=== PATIENT | male | born 1955 | race Two or more races ===

== ENCOUNTER 2019-03-19 02:42 | Emergency (ER) | payer OTHER ==
[~2019-03-19] VITALS: Ht 170.2 cm; Wt 93.6 kg
--- NOTE | 2019-03-19 03:13 | PHYS DOC ---
Adult General Chief Complaint Chief Complaint: ABDOMINAL PAIN HPI HPI 63-year-old male with no past medical history aside from gout presents to the emergency Department complaints of abdominal pain, diarrhea, vomiting, dizziness since Saturday. Patient denies any fever. Nothing makes pain worse, nothing makes his pain better. Patient is tried [id number]-[id number] medications however states the pain is worse tonight. He describes the pain as achy sensation throughout his abdomen, generalized no focal point tenderness. Review of Systems Review of Systems Constitutional: chills Respiratory: Denies cough or shortness of breath [] Cardiovascular: No additional information not addressed in HPI [] GI: + abdominal pain, nausea, vomiting, diarrhea [] Musculoskeletal: Denies back pain or joint pain [] Integument: Denies rash or skin lesions [] Neurologic: + headache, no focal weakness or sensory changes [] All other systems were reviewed and found to be within normal limits, except as documented in this note. Current Medications Current Medications Current Medications Medications (Trade) Dose Ordered Sig/Aaron Start Time Stop Time Status Last Admin Dose Admin Dicyclomine HCl (Bentyl) 10 mg 1X ONCE 03/19/19 03:30 03/19/19 03:31 DC 03/19/19 04:20 10 MG Info (CONTRAST GIVEN -- Rx MONITORING) 1 each PRN DAILY PRN 03/19/19 04:30 03/21/19 04:29 Iohexol (Omnipaque 300 Mg/ml) 75 ml 1X ONCE 03/19/19 05:00 03/19/19 05:01 DC 03/19/19 04:42 75 ML Ondansetron HCl (Zofran) 4 mg 1X ONCE 03/19/19 03:30 03/19/19 03:31 DC 03/19/19 04:19 4 MG Sodium Chloride 1,000 ml @ 1,000 mls/hr 1X ONCE 03/19/19 05:15 03/19/19 06:14 UNV Allergies Allergies Allergies Coded Allergies Type Severity Reaction Last Updated Verified No Known Drug Allergies 03/19/19 No Physical Exam Physical Exam Constitutional: Well developed, well nourished, no acute distress, non-toxic appearance. [] HENT: Normocephalic, atraumatic, bilateral external ears normal, oropharynx moist, no oral exudates, nose normal. [] Eyes: PERRLA, EOMI, conjunctiva normal, no discharge. [] Cardiovascular: Tachycardia Lungs & Thorax: Bilateral breath sounds clear to auscultation [] Abdomen: Bowel sounds normal, soft, TTP generalized, no point tenderness, no masses, no pulsatile masses. [] Skin: Warm, dry, no erythema, no rash. [] Back: No tenderness, no CVA tenderness. [] Extremities: No tenderness, no edema. [] Neurologic: Alert and oriented X 3, no focal deficits noted. [] Psychologic: Affect normal, judgement normal, mood normal. [] Current Patient Data Vital Signs Vital Signs Date Time Temp Pulse Resp B/P (MAP) Pulse Ox O2 Delivery O2 Flow Rate FiO2 03/19/19 02:56 99.0 111 16 150/95 (113) 93 Room Air 99.0 Lab Values Laboratory Tests Test 03/19/19 03:25 03/19/19 04:21 White Blood Count 9.4 x10^3/uL (4.0-11.0) Red Blood Count 5.63 x10^6/uL (4.30-5.70) Hemoglobin 18.3 g/dL (13.0-17.5) H Hematocrit 53.7 % (39.0-53.0) H Mean Corpuscular Volume 95 fL (79-100) Mean Corpuscular Hemoglobin 33 pg (25-35) Mean Corpuscular Hemoglobin Concent 34 g/dL (31-37) Red Cell Distribution Width 13.7 % (11.5-14.5) Platelet Count 203 x10^3/uL (140-400) Neutrophils (%) (Auto) 77 % (31-73) H Lymphocytes (%) (Auto) 12 % (24-48) L Monocytes (%) (Auto) 10 % (0-9) H Eosinophils (%) (Auto) 1 % (0-3) Basophils (%) (Auto) 0 % (0-3) Neutrophils # (Auto) 7.3 x10^3/uL (1.8-7.7) Lymphocytes # (Auto) 1.1 x10^3/uL (1.0-4.8) Monocytes # (Auto) 0.9 x10^3/uL (0.0-1.1) Eosinophils # (Auto) 0.1 x10^3/uL (0.0-0.7) Basophils # (Auto) 0.0 x10^3/uL (0.0-0.2) Sodium Level 140 mmol/L (136-145) Potassium Level 4.4 mmol/L (3.5-5.1) Chloride Level 102 mmol/L (98-107) Carbon Dioxide Level 21 mmol/L (21-32) Anion Gap 17 (6-14) H Blood Urea Nitrogen 18 mg/dL (8-26) Creatinine 0.8 mg/dL (0.7-1.3) Estimated GFR (Cockcroft-Gault) 97.0 BUN/Creatinine Ratio 23 (6-20) H Glucose Level 118 mg/dL (70-99) H Lactic Acid Level 1.9 mmol/L (0.4-2.0) Calcium Level 9.4 mg/dL (8.5-10.1) Total Bilirubin 0.5 mg/dL (0.2-1.0) Aspartate Amino Transferase (AST) 33 U/L (15-37) Alanine Aminotransferase (ALT) 55 U/L (16-63) Alkaline Phosphatase 151 U/L (46-116) H Troponin I Quantitative < 0.017 ng/mL (0.000-0.055) Total Protein 7.7 g/dL (6.4-8.2) Albumin 3.9 g/dL (3.4-5.0) Albumin/Globulin Ratio 1.0 (1.0-1.7) Lipase 193 U/L (73-393) Urine Collection Type Unknown Urine Color Yellow Urine Clarity Clear Urine pH 5.5 Urine Specific [place] >=1.030 Urine Protein 30 mg/dL (NEG-TRACE) Urine Glucose (UA) Negative mg/dL (NEG) Urine Ketones (Stick) Negative mg/dL (NEG) Urine Blood Small (NEG) Urine Nitrite Negative (NEG) Urine Bilirubin Negative (NEG) Urine Urobilinogen Dipstick 0.2 mg/dL (0.2 mg/dL) Urine Leukocyte Esterase Negative (NEG) Urine RBC 6-10 /HPF (0-2) Urine WBC 1-4 /HPF (0-4) Urine Squamous Epithelial Cells Few /LPF Urine Bacteria 0 /HPF (0-FEW) Urine Hyaline Casts Few /HPF Urine Mucus Marked /LPF Laboratory Tests 03/19/19 03:25 Laboratory Tests 03/19/19 03:25 EKG EKG [] Radiology/Procedures Radiology/Procedures [facility] [address] [place] [address] IMAGING REPORT Signed PATIENT: ARAMIS SOUZA ACCOUNT: [id number] : 1955 LOCATION: ER AGE: 63 SEX: M EXAM STATUS: REG ER ORD. PHYSICIAN: LEELEE YANES MD REASON: abdominal pain, OMNI 300, 75 ML IV PROCEDURE: CT ABD PELV W/ IV CONTRST ONLY EXAM: CT Abdomen and Pelvis with IV contrast CLINICAL HISTORY: Abdominal pain. COMPARISON: none TECHNIQUE: Helical CT of the abdomen and pelvis was performed following the administration of IV contrast. Axial, coronal and sagittal reformatted images were generated. ---PQRS compliance statement - One or more of the following individualized dose reduction techniques were utilized for this study: 1. Automated exposure control 2. Adjustment of the mA and/or kV according to patient size 3. Use of iterative reconstruction technique--- FINDINGS: Lower chest: Linear and dependent opacities in the lung bases likely atelectasis. Aortic root calcifications are seen. Abdomen and pelvis: Liver and biliary system: 1.1 cm left hepatic lobe cystic lesion is seen. Gallbladder is normal. No biliary ductal dilatation. Spleen: Unremarkable Pancreas: Unremarkable Adrenal glands: Unremarkable Kidneys: Symmetric nephrograms. No focal renal lesion. No hydronephrosis. No hydroureter. Lymph nodes/retroperitoneum: No abdominal or pelvic lymphadenopathy. A few mildly prominent mesenteric lymph nodes are seen. Vessels: Aortic calcifications are seen. Bowel/Peritoneal cavity: Moderate colonic stool content is seen. No small or large bowel dilatation. Colonic diverticula are noted. No evidence for acute diverticulitis. Appendix is normal. No abdominal or pelvic ascites. Abdominal wall: Unremarkable Bladder: Mild bladder wall thickening, nonspecific but may be related to underdistention or cystitis. Bones: Degenerative changes of the spine are seen. Bilateral L5 pars defects are seen. No spondylolisthesis. IMPRESSION: 1. No bowel obstruction. A few colonic diverticula are seen without evidence for acute diverticulitis. 2. Mild bladder wall thickening, nonspecific but may be related to underdistention or cystitis. Electronically signed by: Cholo Lopez MD (03/19/2019 4:54 AM) [id number] DICTATED and SIGNED BY: CHOLO LOPEZ MD DATE: 03/19/19 0454 [] Course & Med Decision Making Course & Med Decision Making Pertinent Labs and Imaging studies reviewed. (See chart for details) []63-year-old male with no past medical history aside from gout presents to the emergency Department complaints of abdominal pain, diarrhea, vomiting, dizziness since Saturday. Patient denies any fever. Nothing makes pain worse, nothing makes his pain better. Patient is tried [id number] medications however states the pain is worse tonight. He describes the pain as achy sensation throughout his abdomen, generalized no focal point tenderness. Laboratory values and imaging reviewed CT without evidence of acute intra-abdominal process to attribute patient's pain Patient pain is improved after Bentyl and Zofran Labs reviewed, lactic acid 1.9, urinalysis negative, white blood cell count 9.4, metabolic profile unremarkable Patient's unremarkable workup, improved pain we'll plan for Zofran and Bentyl upon discharge Received 2 L of IV fluid within the emergency department. Discussed return precautions at bedside Dragon Disclaimer Dragon Disclaimer This electronic medical record was generated, in whole or in part, using a voice recognition dictation system. Departure Departure Impression: Primary Impression: Abdominal pain Additional Impression: Gastroenteritis Disposition: HOME, SELF-CARE Condition: IMPROVED Referrals: ALEXANDRA BARNEY MD (PCP) Patient Instructions: Abdominal Pain (Nonspecific), Viral Gastroenteritis, [id number] Additional Instructions: Recommend follow up with PCP 3 - 5 days Return to the ER with worsening symptoms, intractable pain, fever, altered mental status Tylenol/Motrin as needed for pain CT negative for acute intra-abdominal process Urine negative for acute infection Rx provided for bentyl and zofran Scripts Ondansetron Hcl (ZOFRAN) 4 Mg Tablet 1 TAB PO PRN Q6-8HRS for nausea, #12 TAB Prov: LEELEE YANES MD 03/19/19 Dicyclomine Hcl (DICYCLOMINE HCL) 10 Mg Capsule 1 CAP PO PRN Q6HRS PRN for PAIN for 5 Days, #20 CAP 3 Refills Prov: LEELEE YANES MD 03/19/19 Problem Qualifiers Primary Impression: Abdominal pain Abdominal location: generalized Qualified Codes: R10.84 - Generalized abdominal pain LEELEE YANES MD Mar 19, 2019 03:13
[2019-03-19] MEDS ORDERED: DICYCLOMINE 20 MG/2 ML AMPUL. IM ONE (03:30)
[2019-03-19] MEDS ORDERED: IV NORMAL SALINE 1000ML BAG 1,000 ML IV SCH (03:30)
[2019-03-19] MEDS ORDERED: ONDANSETRON PF 4 MG/2 ML VIAL. IVP ONE (03:30)
[2019-03-19 03:31] LABS: BASO % 0 % (0-3); EOS # 0.1 x10^3/uL (0.0-0.7); EOS % 1 % (0-3); HEMATOCRIT 53.7 % (39.0-53.0); HEMOGLOBIN 18.3 g/dL (13.0-17.5); LYMPH # 1.1 x10^3/uL (1.0-4.8); LYMPH % 12 % (24-48); MEAN CORPUSCULAR HEMOGLOBIN 33 pg (25-35); MEAN CORPUSCULAR HGB CONC 34 g/dL (31-37); MEAN CORPUSCULAR VOLUME 95 fL (79-100); MONO # 0.9 x10^3/uL (0.0-1.1); MONO % 10 % (0-9); NEUT # 7.3 x10^3/uL (1.8-7.7); NEUT % 77 % (31-73); PLATELET COUNT 203 x10^3/uL (140-400); RED BLOOD COUNT 5.63 x10^6/uL (4.30-5.70); RED CELL DISTRIBUTION WIDTH 13.7 % (11.5-14.5); WHITE BLOOD COUNT 9.4 x10^3/uL (4.0-11.0)
[2019-03-19 04:01] LABS: CALCIUM 9.4 mg/dL (8.5-10.1); CREATININE 0.8 mg/dL (0.7-1.3); POTASSIUM 4.4 mmol/L (3.5-5.1)
[2019-03-19 04:09] LABS: ALBUMIN 3.9 g/dL (3.4-5.0); TOTAL BILIRUBIN 0.5 mg/dL (0.2-1.0); TOTAL PROTEIN 7.7 g/dL (6.4-8.2)
[2019-03-19] MEDS ORDERED: CONTRAST GIVEN. MC PRN (04:30)
[2019-03-19 04:36] LABS: BILIRUBIN,URINE NEGATIVE (NEG); CLARITY,URINE CLEAR; COLOR,URINE YELLOW; NITRITE,URINE NEGATIVE (NEG); PH,URINE 5.5; PROTEIN,URINE 30 mg/dL (NEG-TRACE); SQUAMOUS EPITHELIAL CELL,UR FEW /LPF; UROBILINOGEN,URINE 0.2 mg/dL (0.2 mg/dL)
[2019-03-19 04:38] LABS: BACTERIA,URINE 0 /HPF (0-FEW); HYALINE CASTS, URINE FEW /HPF
--- NOTE | 2019-03-19 04:57 | RAD ---
EXAM: CT Abdomen and Pelvis with IV contrast CLINICAL HISTORY: Abdominal pain. COMPARISON: none TECHNIQUE: Helical CT of the abdomen and pelvis was performed following the administration of IV contrast. Axial, coronal and sagittal reformatted images were generated. ---PQRS compliance statement - One or more of the following individualized dose reduction techniques were utilized for this study: 1. Automated exposure control 2. Adjustment of the mA and/or kV according to patient size 3. Use of iterative reconstruction technique--- FINDINGS: Lower chest: Linear and dependent opacities in the lung bases likely atelectasis. Aortic root calcifications are seen. Abdomen and pelvis: Liver and biliary system: 1.1 cm left hepatic lobe cystic lesion is seen. Gallbladder is normal. No biliary ductal dilatation. Spleen: Unremarkable Pancreas: Unremarkable Adrenal glands: Unremarkable Kidneys: Symmetric nephrograms. No focal renal lesion. No hydronephrosis. No hydroureter. Lymph nodes/retroperitoneum: No abdominal or pelvic lymphadenopathy. A few mildly prominent mesenteric lymph nodes are seen. Vessels: Aortic calcifications are seen. Bowel/Peritoneal cavity: Moderate colonic stool content is seen. No small or large bowel dilatation. Colonic diverticula are noted. No evidence for acute diverticulitis. Appendix is normal. No abdominal or pelvic ascites. Abdominal wall: Unremarkable Bladder: Mild bladder wall thickening, nonspecific but may be related to underdistention or cystitis. Bones: Degenerative changes of the spine are seen. Bilateral L5 pars defects are seen. No spondylolisthesis. IMPRESSION: 1. No bowel obstruction. A few colonic diverticula are seen without evidence for acute diverticulitis. 2. Mild bladder wall thickening, nonspecific but may be related to underdistention or cystitis. Electronically signed by: Cholo Huerta MD (03/19/2019 4:54 AM) [place] [id number]
[2019-03-19] MEDS ORDERED: IOHEXOL 300 MG/ML 100ML VIAL. IV ONE (05:00)
[2019-03-19] MEDS ORDERED: DICY10CA3 PO (05:12)
[2019-03-19] MEDS ORDERED: ONDA4TAB7 PO (05:12)
[2019-03-19] MEDS ORDERED: IV NORMAL SALINE 1000ML BAG 1,000 ML IV ONE (05:15)
[2019-03-19 06:09] VITALS: BP 149/87
--- NOTE | 2019-03-19 06:46 | EKG ---
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
== END 2019-03-19 06:10 | disposition home or self-care (01) ==
LOC: ER 02:42
DX: K52.9 Noninfective gastroenteritis and colitis, unspecified (principal); R10.84 Generalized abdominal pain; R11.2 Nausea with vomiting, unspecified; R42 Dizziness and giddiness; R51 Headache
CPT/HCPCS: 36415; 74177; 80053; 81001; 83605; 83690; 84484; 85025; 93005; 96361; 96372; 96374; 99285; J0500; J2405; J7030; Q9967

== ENCOUNTER 2021-05-17 04:52 | Emergency (ER) | payer MEDICARE, OTHER ==
[~2021-05-17] VITALS: Ht 167.6 cm; Wt 95.4 kg
[~2021-05-17 04:52] MED LIST: DICY10CA3 PO; ONDA4TAB7 PO
--- NOTE | 2021-05-17 06:00 | RAD ---
EXAMINATION: XR SHOULDER_RIGHT 2+ VIEWS CLINICAL HISTORY: Right shoulder pain following injury. TECHNIQUE: XR SHOULDER_RIGHT 2+ VIEWS COMPARISON: None FINDINGS/ IMPRESSION: Glenohumeral joint alignment maintained. Mild to moderate hypertrophic acromioclavicular degenerative changes. No acute fracture. Electronically signed by: Liborio Holm DO (05/17/2021 5:58 AM) NIK
--- NOTE | 2021-05-17 06:11 | PHYS DOC ---
Past Medical History Past Medical History: High Cholesterol, Other Additional Past Medical Histor: GOUT Past Surgical History: No Surgical History Smoking Status: Never Smoker Alcohol Use: Occasionally Drug Use: None General Adult EDM: Chief Complaint: UPPER EXTREMITY PAIN HPI: HPI: Patient is a 65 year old male who presents with 15 days of right shoulder pain. Symptoms began after he and his son were stretching his shoulder using a rubber exercise band. No direct trauma or injury reported. He denies any motor weakness or numbness or tingling. He denies neck pain or back pain. He denies chest pain or dyspnea. No dizziness or diaphoresis reported. He has not yet seen his primary care doctor. No medication taken for this pain today. No acute changes in symptoms today. No previous known injury to the shoulder or arm. Review of Systems: Review of Systems: Constitutional: Denies fever or chills. [] HENT: Denies nasal congestion or sore throat. [] Respiratory: Denies cough or shortness of breath. [] Cardiovascular: Denies chest pain or edema. [] GI: Denies abdominal pain, nausea, vomiting Musculoskeletal: Denies back pain or neck pain. Reports right shoulder pain Integument: Denies rash. [] Neurologic: Denies headache, focal weakness or sensory changes. [] Psychiatric: Denies depression or anxiety. [] Heart Score: C/O Chest Pain: No Risk Factors: Risk Factors: DM, Current or recent (<one month) smoker, HTN, HLP, family history of CAD, obesity. Risk Scores: Score 0 - 3: 2.5% MACE over next 6 weeks - Discharge Home Score 4 - 6: 20.3% MACE over next 6 weeks - Admit for Clinical Observation Score 7 - 10: 72.7% MACE over next 6 weeks - Early Invasive Strategies Allergies: Allergies: Allergies Coded Allergies Type Severity Reaction Last Updated Verified No Known Drug Allergies 03/19/19 No Physical Exam: PE: Constitutional: Well developed, well nourished, no acute distress, non-toxic appearance. [] HENT: Normocephalic, atraumatic Eyes: Conjunctiva normal, no discharge. [] Neck: Normal range of motion, no tenderness, supple, no stridor. No midline tenderness or step-offs. Cardiovascular:Heart rate regular rhythm, +2 radial pulses Lungs & Thorax: Bilateral breath sounds clear to auscultation [] Skin: Warm, dry, no erythema, no rash. [] Back: No tenderness, no CVA tenderness. No midline tenderness or step-offs. No deformity. Full range of motion Extremities: No acute limb deformity. Limited range of motion of the right shoulder, partially with abduction, external rotation and internal rotation. Less pain with right shoulder flexion. No palpable crepitus or step-offs. No bony deformity. No limb edema. Compartments are soft. No pain or tenderness out of proportion to exam findings. No wrist drop. +2 radial pulse, normal city council member strength. Lower upper arm, right elbow, right forearm, right wrist and hand are all nontender. Neurologic: Alert and oriented X 3, normal motor function, normal sensory function, no focal deficits noted. [] Psychologic: Affect normal, judgement normal, mood normal. [] Current Patient Data: Vital Signs: Vital Signs Date Time Temp Pulse Resp B/P (MAP) Pulse Ox O2 Delivery O2 Flow Rate FiO2 05/17/21 04:55 98.3 79 18 155/77 (103) 95 Room Air 98.3 EKG: EKG: [] Radiology/Procedures: Radiology/Procedures: IMAGING REPORT Signed PATIENT: MARQUES MCDANIELS SACCOUNT: [id number] : 1955 LOCATION: ER AGE: 65 SEX: M EXAM STATUS: REG ER ORD. PHYSICIAN: INDIGO PLUNKETT MD REASON: pain, injury PROCEDURE: SHOULDER 2+V RIGHT EXAMINATION: XR SHOULDER_RIGHT 2+ VIEWS CLINICAL HISTORY: Right shoulder pain following injury. TECHNIQUE: XR SHOULDER_RIGHT 2+ VIEWS COMPARISON: None FINDINGS/ IMPRESSION: Glenohumeral joint alignment maintained. Mild to moderate hypertrophic acromioclavicular degenerative changes. No acute fracture. Electronically signed by: Liborio Orozco DO (05/17/2021 5:58 AM) [facility] DICTATED and SIGNED BY: LIBORIO OROZCO DO DATE: 05/17/21 0556 Course & Med Decision Making: Course & Med Decision Making Pertinent Labs and Imaging studies reviewed. (See chart for details) The patient was given p.o. [place] for pain. Sling was provided for comfort. I discussed the findings, differential diagnosis and plan of care with the patient and his son. I recommend that he follow-up with his PCP, he may require outpatient, nonemergent MRI, as well as physical therapy services. He is told to come out of his sling several times a day and perform some gentle range of motion so as to avoid adhesive capsulitis. Return precautions are given. Dragon Disclaimer: Dragon Disclaimer: This electronic medical record was generated, in whole or in part, using a voice recognition dictation system. Departure Departure Impression: Primary Impression: Right shoulder pain Qualified Codes: M25.511 - Pain in right shoulder Disposition: HOME / SELF CARE / HOMELESS Condition: STABLE Referrals: ALEXANDRA FLORES MD (PCP) Patient Instructions: Shoulder Exercises, Generic, SportsMed, Shoulder Sprain Additional Instructions: Return to the ER for new injury or trauma, more severe pain, severe joint swelling or redness, temperature 100.4 or higher. Use the sling as needed for comfort, but make sure you come out of your sling and move your shoulder several times a day. Use the pain medication as needed for severe pain. Please contact Dr. Flores to discuss outpatient MRI and physical therapy services. Scripts Hydrocodone Bit/Acetaminophen (HYDROCODONE-APAP 5-325 ) 1 Tab Tablet 1 TAB PO PRN Q6HRS PRN for PAIN, #20 TAB 0 Refills Prov: ANSHUL FRIED DO 05/17/21 ANSHUL FRIED DO May 17, 2021 06:11
[2021-05-17 06:35] VITALS: BP 159/74
[2021-05-17] MEDS ORDERED: HYDR-2761 PO (06:50)
[2021-05-17] MEDS ORDERED: HYDROcodone/APAP 5/325MG 1 TAB TABLET PO ONE (07:00)
== END 2021-05-17 07:05 | disposition home or self-care (01) ==
LOC: ER 04:52
DX: M25.511 Pain in right shoulder (principal); E78.00 Pure hypercholesterolemia, unspecified; M10.9 Gout, unspecified
CPT/HCPCS: 73030; 99283; A4565